=== PATIENT | female | born 1985 | race African-American/Black ===

== ENCOUNTER 2022-06-06 12:59 | Outpatient (CLI) | payer OTHER ==
[~2022-06-06 12:59] MED LIST: AMOX500C85 PO; LORA10TA3 PO; MEDR150I3 IM; RANI150T78 PO; [UNRECOGNIZED DRUG - OTHER] OR
[2022-06-06 13:52] LABS: POTASSIUM 3.8 mmol/L (3.6-5.2)
== END 2022-06-06 19:16 | disposition home or self-care (01) ==
LOC: LABW 12:59
PROVIDERS: ATTEND Nurse Practitioner Family
DX: R10.11 Right upper quadrant pain (principal)
CPT/HCPCS: 36415; 80053; 82150; 83690